=== PATIENT | male | born 1965 | race Caucasian/White ===

== ENCOUNTER 2020-12-16 08:06 | Day surgery (SDC) | payer OTHER ==
[2020-12-16 08:23] LABS: Basophils % 0.8 % (0-1.3); Hematocrit 45.2 % (39.6-49.0); Lymphocytes % 13.1 % (15.3-44.8); MPV 8.3 fL (7.6-11.3); RBC Red Blood Cell Count 5.05 M/uL (4.33-5.43)
[2020-12-16 08:30] LABS: Potassium 4.4 mmol/L (3.5-5.1)
--- NOTE | 2020-12-16 09:05 | RAD REPORT ---
EXAM DESCRIPTION: RAD - Chest Pa And Lat (2 Views) - 12/16/2020 8:19 am CLINICAL HISTORY: preop, pending colonoscopy COMPARISON: October 2014 TECHNIQUE: Frontal and lateral views of the chest were obtained. FINDINGS: The lungs are clear. Heart size is normal and central vasculature is within normal limit s. No pleural effusion or pneumothorax seen. No acute bony finding noted. No aortic abnormality. IMPRESSION: No acute cardiopulmonary process. No significant change from comparison study.
[2020-12-16] MEDS ORDERED: NA CHLORIDE 0.9% 1,000 ML ONE (10:07)
[2020-12-16] MEDS ORDERED: propofoL 200 MG/20 ML VIAL IV ONE ×2 (11:55)
[2020-12-16] MEDS ORDERED: LIDOCAINE 1% MPF 5 ML VIAL ONE (11:55)
--- NOTE | 2020-12-16 12:11 | ENDO RPT ---
[address], [id number] COLONOSCOPY PROCEDURE REPORT EXAM DATE: 12/16/2020 PATIENT NAME: Elia Castorena MR #: [id number] BIRTHDATE: 1965 ATTENDING: Willie Olivas M.D. STATUS: outpatient SVP MARKETING: Allison Colin and Payton Stallings RN INDICATIONS: The patient is a 55 yr old Male here for a colonoscopy due to colon cancer screening PROCEDURE PERFORMED: Colonoscopy MEDICATIONS: Per Anesthesia. ESTIMATED BLOOD LOSS: None CONSENT: The patient understands the risks and benefits of the procedure and understands that these risks include, but are not limited to: sedation, allergic reaction, infection, perforation and/or bleeding. Alternative means of evaluation and treatment include, among others: physical exam, x-rays, and/or surgical intervention. The patient elects to proceed with this endoscopic procedure. DESCRIPTION OF PROCEDURE: During intra-op preparation period all mechanical medical equipment was checked for proper function. Hand hygiene and appropriate measures for infection prevention was taken. Procedure, possible complications, alternatives including, but not limited to possibility of bleeding, perforation, tear, infection, sepsis, need for surgery, need for blood transfusion, were explained to the patient. After the risks, benefits and alternatives of the procedure were thoroughly explained, Informed consent was verified, confirmed and timeout was successfully executed by the treatment team. The patient was placed in the left lateral position. A digital rectal exam was performed and revealed an enlarged prostate. After appropriate level of anesthesia, the scope was passed. The EC-[id number] ([id number]) endoscope was introduced through the anus and advanced to the cecum, which was identified by the ileocecal valve. The quality of the prep was fair. The instrument was then slowly withdrawn as the colon was fully examined. Scope withdrawal time was 11 minutes. COLON FINDINGS: Severe diverticulosis was noted throughout the entire examined colon. Retroflexed views revealed no abnormalities. The scope was then completely withdrawn from the patient and the procedure terminated. ADVERSE EVENTS: There were no complications. IMPRESSIONS: Severe diverticulosis was noted throughout the entire examined colon RECOMMENDATIONS: 1. fiber rich diet 2. follow-up: office 1 week(s) 3. increase dietary water 4. no seeds in diet RECALL: Return in 10 year(s) for Colonoscopy. Willie Olivas M.D. eSigned: Willie Olivas M.D. 12/16/2020 12:10 PM cc: Keenan Myers MD CPT CODES: ICD9 CODES: 600.0 Hypertrophy (benign) of prostate PATIENT NAME: Elia Castorena MR#: [id number]
[2020-12-16] MEDS ORDERED: GLUCAGON 1 MG/VIAL ONE (12:55)
[2020-12-16 13:37] VITALS: BP 140/89; TEMP 96.9; O2SAT 95
== END 2020-12-16 13:25 | disposition home or self-care (01) ==
LOC: OR 08:06
PROVIDERS: ATTEND Surgery
PROC: 0DJD8ZZ Inspection of Lower Intestinal Tract, Via Natural or Artificial Opening Endoscopic (ICD-10-PCS; principal; 2020-12-16 11:15)
DX: Z12.11 Encounter for screening for malignant neoplasm of colon (principal); Z20.822 Contact with and (suspected) exposure to COVID-19; N40.0 Benign prostatic hyperplasia without lower urinary tract symptoms; K57.30 Diverticulosis of large intestine without perforation or abscess without bleeding
CPT/HCPCS: 93005; 85025; 80048; 36415; 71046; 45378; U0003; J2704; J1610; J7030